=== PATIENT | male | born 1985 | race Caucasian/White ===

== ENCOUNTER → 2016-10-08 | Day surgery (SDC) | payer BC ==
[~2016-10-08] MED LIST: ADDERALL20 MG; ZESTRIL10 MG PO
--- NOTE | ~2016-10-08 | OR ---
Unit #: [id number] #: [id number] Patient: DARSHANA BALLARD [id number] [facility] [address] [place], [place] [address] [id number] O MR#: [id number] NAME: DARSHANA BALLARD ROOM: Date of Procedure: 10/08/2016 Admission Date: 10/08/2016 Surgeon: Clinton Gutierrez M.D. : 1985 Attending Physician: Clinton Gutierrez M.D. Primary Care Physician: Richard Cummings M.D. OPERATIVE REPORT PREOPERATIVE DIAGNOSIS Chronic morbid obesity, body mass index 36. POSTOPERATIVE DIAGNOSES 1. Chronic morbid obesity, body mass index 36. 2. Paraesophageal hiatal hernia. PROCEDURES PERFORMED 1. Laparoscopic adjustable gastric band. 2. Laparoscopic paraesophageal hernia repair. ASSISTANT John Alcocer M.D. ANESTHESIA General endotracheal anesthesia. ESTIMATED BLOOD LOSS Minimal. IV FLUIDS 800 crystalloid. COMPLICATIONS None. INDICATIONS FOR PROCEDURE The patient is a 31-year-old gentleman presents with chronic morbid obesity. He has gone through the [facility] bariatric program and is interested in laparoscopic adjustable gastric band placement. We have discussed the procedure in detail and he appears to be well informed and highly motivated. DESCRIPTION OF PROCEDURE The patient was taken in the operating room and placed in a supine position. General endotracheal anesthesia was induced. The abdomen was then prepped and draped. A 3-cm incision was then made left of the midline. A 10-mm Visiport was then placed intraabdominal under direct vision. The abdomen was insufflated to 15 mmHg with CO2. The patient was then placed in a steep reversed Trendelenburg. General inspection of the Unit #: [id number] #: [id number] Patient: DARSHANA BALLARD abdomen revealed no gross abnormalities with visible viscera. We then made a small incision in the subxiphoid region. A Jose Maria liver retractor was then placed intraabdominal and used to retract the left lobe of the liver upward to expose the gastroesophageal junction. I then placed a 5-mm and 10-mm port in the left subcostal region under direct vision. I also placed a 5-mm port in the right upper quadrant position. The stomach was retracted medial and then downward. Upon retracting the stomach downward, we identified a hiatal hernia. We thus mobilized the phrenicoesophageal ligament to expose the right and left ronald. Upon doing so we were able to clearly define the hiatal hernia and reduce the stomach back into the abdominal cavity. The hernia was then repaired with interrupted 0-Ethibond sutures secured in a [id number] fashion. This repaired the hernia nicely without undue constriction of the esophagus. We then retracted the stomach medial. Using electrocautery, I scored an area over the origin of the left ronald at the angle of His. The stomach was then retracted lateral. I took down the hepatic gastric ligament with Bovie electrocautery. This exposed the junction of the right and left ronald. Using blunt dissection I created a retrogastric tunnel from this point to the Angle of His. The band was then placed intraabdominal through the 10-mm port site. This was then brought through the retrogastric tunnel in pars flaccida technique. The band was then closed over the anterior stomach to form a 20 mL to 25 mL anterior gastric pouch. The fundus was then secured to the anterior pouch to prevent movement of the and around the stomach using two interrupted 0-Ethibond sutures. A third Ethibond suture was then used as a gathering stitch to secure the anterior stomach at the lesser curve to the remaining fundus. The tubing was then brought out through a 10-mm port site. All ports and the Jose Maria liver retractor were then removed under direct vision with no evidence of abdominal hemorrhage. A subcutaneous pocket was then created at the 10-mm port site. The tubing was then connected to the injectable port. The port was then placed into the subcutaneous pocket and secured to the anterior fascia with 0-Ethibond sutures. The remaining portion of the tubing was then threaded into the abdominal cavity. All wounds were then anesthetized with 0.25% Marcaine. The skin incisions were closed with 4-0 Vicryl. The patient tolerated the procedure well and was sent to the recovery room in good condition. Dictated by... Litzy Bustillo/marcin TD: 10/09/2016 02:56 JOB #: [id number] OPERATIVE REPORT X Clinton Gutierrez MD PROCEDURE OPERATIVE NOTE
--- NOTE | ~2016-10-08 | CR7 ---
[facility] A Service of [facility] & [facility] RADIOLOGY TEXT RESULTS PATIENT: DARSHANA BALLARD LOCATION: [facility] : [birth year] UNIT #: [id number] AGE: [address]: Clinton Gutierrez MD SEX: M ORDER DR: [id number] [facility] [address] [place], [place] [address] [id number] O MR#: [id number] Acc #: [id number] NAME: DARSHANA BALLARD. : 1985 SEX: M STUDY DATE/TIME: 10/08/2016 8:23 UNIT: [facility] ROOM: STUDY DESCRIPTION: CR Abdomen Single AP View Attending Physician: Clinton Gutierrez M.D. Ordering Physician: Clinton Gutierrez M.D. Primary Care Physician: Richard Cummings M.D. MEDICAL IMAGING REPORT This report is preliminary unless electronic signature is present EXAM KUB, 10/08 INDICATION Gastric band placement today. Abdominal pain. Morbid obesity. FINDINGS Supine view of the abdomen was obtained. Gastric band is present with a phi angle of about 35 degrees. The port is to the left of midline in the mid abdomen. Bowel gas pattern is normal. IMPRESSION Gastric band in place with a phi angle of about 35 degrees. Dictated by... Juarez Damian Jr., M.D. THIS IS AN ELECTRONICALLY VERIFIED REPORT Juarez Damian Jr., M.D. at 10/08/2016 2:57 PM MARLA/uzma TD: 10/08/2016 10:54 JOB #: [id number] MEDICAL IMAGING REPORT COPY
[2016-10-08 06:40] LABS: HEMATOCRIT 42.5 % (38.0-50.0); HEMOGLOBIN 14.3 gm/dL (13.0-16.0); MEAN CELL VOLUME 86.2 FL (83-96); MEAN CORPUSCULAR HGB CONC 33.7 g/dL (30-36); MEAN PLATELET VOLUME 9.4 FL (6.5-11.5); RED BLOOD COUNT 4.93 X10e (3.90-5.60); RED CELL DISTRIBUTION WIDTH 13.4 % (11.0-15.5); WHITE BLOOD COUNT 9.5 X10e3 (4.0-10.5)
== END | disposition home or self-care (01) ==
LOC: CSUR 05:40
PROVIDERS: Surgery
DX: E66.01 Morbid (severe) obesity due to excess calories (principal); K44.9 Diaphragmatic hernia without obstruction or gangrene; I10 Essential (primary) hypertension; F32.9 Major depressive disorder, single episode, unspecified; Z68.36 Body mass index [BMI] 36.0-36.9, adult; Z90.89 Acquired absence of other organs; Z87.891 Personal history of nicotine dependence; Z79.899 Other long term (current) drug therapy
CPT/HCPCS: 74000; 85027; C1781; J0330; J0690; J1100; J1650; J1885; J2250; J2405; J2710; J3010